=== PATIENT | female | born 1965 | race African-American/Black ===

== ENCOUNTER 2020-05-13 15:29 | Inpatient (IN) | payer OTHER ==
--- NOTE | 2020-05-13 15:41 | PDOC ---
Rapid Medical Evaluation Time Seen by Provider: 05/13/20 15:32 Medical Evaluation: 05/13/20 15:36 I performed a brief in-person evaluation of this patient. Pt is a 54 y/o female with a wound to the her R medial ankle that she noticed several months. She was seen in wound care in [place]. She has been here since labor day visiting family and noticed the pain has gotten much worse and much more drainage. Pt has h/o HTN, asthma. No DM, no smoker. Was placed on doxycycline last week and just finished the course. Pertinent physical exam findings: Medial ankle wound with drainage. No significant odor. Significant tenderness to touch. I have ordered the following: saline lock, labs, ankle xray Patient to proceed to ED for further evaluation. Discharge Disposition - Diagnosis Wound of right ankle - Referrals - Patient Instructions - Post Discharge Activity
[2020-05-13] MEDS ORDERED: CLINDAMYCIN 600MG PREMIX IVPB 600 MG/50 ML BAG IVPB ONE ×2 (16:36→17:25)
--- NOTE | 2020-05-13 17:04 | PDOC ---
History of Present Illness - General Chief Complaint: Wound Stated Complaint: WOUND Time Seen by Provider: 05/13/20 15:32 History Source: Patient Exam Limitations: No Limitations - History of Present Illness Initial Comments: 05/13/20 16:59 54-year-old female presents to ED with complaints of nonhealing wound to her right inner ankle for the past few months patient states lives in [place] has been in wound care since December and was placed on doxycycline which she completed on the fourth of this month but continues with collagenase and topical ointments with dressing changes with no improvement. Patient denies fever but states increased pain and swelling to area. Patient denies history of diabetes or immunosuppression Is this a multiple visit Asthma Patient?: No Timing/Duration: getting worse Severity: moderate Associated Symptoms: reports: other Past History - Travel History Traveled outside of the country in the last 30 days: No Close contact w/someone who was outside of country & ill: No - Medical History Allergies/Adverse Reactions: Allergies Allergy/AdvReac Type Severity Reaction Status Date / Time No Known Allergies Allergy Verified 05/13/20 15:40 Home Medications: Ambulatory Orders Hydrochlorothiazide [Hctz -] 25 mg PO DAILY 05/13/20 Lisinopril [Zestril] 10 mg PO DAILY 05/13/20 Albuterol Sulfate Inhaler - [Ventolin HFA Inhaler -] 2 puff IH Q4H PRN 05/14/20 Amoxicillin/Potassium Clav [Augmentin 875-125 Tablet] 1 each PO BID #14 tablet 05/17/20 Ferrous Sulfate [Feosol] 325 mg PO BID #60 ud 05/17/20 Polyethylene Glycol 3350 [Miralax (For Daily Use) -] 17 gm PO DAILY PRN #1 bottle 05/17/20 COPD: No HTN: Yes Other medical history: ARTHRITIS - Reproductive History Is Patient Now?: No - Psycho-Social/Smoking History Patient Lives Alone: No Smoking History: Never smoked Review of Systems - Review of Systems Able to Perform ROS?: Yes Constitutional: No: Symptoms Reported HEENTM: No: Symptoms Reported Respiratory: No: Symptoms reported Cardiac (ROS): No: Symptoms Reported ABD/GI: No: Symptoms Reported : No: Symptoms Reported Musculoskeletal: No: Joint Swelling Integumentary: Yes: Other (wound) Neurological: No: Symptoms reported Endocrine: No: Symptoms Reported *Physical Exam - Vital Signs Last Vital Signs Temp Pulse Resp BP Pulse Ox 109 H 18 138/75 100 05/13/20 15:35 05/13/20 15:35 05/13/20 15:35 05/13/20 15:35 - Physical Exam General Appearance: Yes: Nourished, Appropriately Dressed. No: Apparent Distress HEENT: negative: Pale Conjunctivae Neck: positive: Supple Respiratory/Chest: positive: Lungs Clear, Normal Breath Sounds. negative: Resp iratory Distress, Accessory Muscle Use Cardiovascular: positive: Regular Rate. negative: Murmur Gastrointestinal/Abdominal: positive: Soft. negative: Tenderness Extremity: positive: Normal Inspection Integumentary: positive: Other (Noted 3 cm open wound to the medial aspect of right malleolus with boggy whitish center.Surrounding skin erythematous with 4+ nonpitting edema extending to the foot) Neurologic: positive: Motor Strength 5/5 (Ambulatory) ED Treatment Course - LABORATORY CBC & Chemistry Diagram: 05/17/20 07:30 05/17/20 07:30 - RADIOLOGY Radiology Studies Ordered: Category Date Time Status DUPLEX VASCUL US-1 LEG [US] Stat Ultrasound 05/13/20 16:35 Ordered Medical Decision Making - Medical Decision Making 05/13/20 17:06 Chief complaint: Nonhealing worsening open wound to the right medial aspect of ankle. Patient completed doxycycline on the fourth was in wound care up into the third while in [place] Exam: Open 3 cm wound to lower aspect of right lower extremity surrounding skin erythematous and edematous concerning for cellulitis versus DVT Plan: X-ray, labs, ultrasound, IV clindamycin ordered along with wound culture 05/13/20 17:52 No radiology no radiographic evidence of osteomyelitis Discharge - Discharge Information Problems reviewed: Yes Clinical Impression/Diagnosis: Cellulitis and abscess of leg Wound of right ankle Qualifiers: Encounter type: initial encounter Qualified Code(s): S91.001A - Unspecified open wound, right ankle, initial encounter Condition: Improved Disposition: HOME - Follow up/Referral - Patient Discharge Instructions - Post Discharge Activity
[2020-05-13 18:02] LABS: BASO % 0.2 % (0-2.0); EOS % 4.1 % (0-4.5); HEMATOCRIT 31.3 % (32.4-45.2); HEMOGLOBIN 9.8 GM/dL (10.7-15.3); LYMPH % 32.7 % (8-40); MCH 22.3 pg (25.7-33.7); MCHC 31.3 g/dl (32.0-36.0); MEAN CELL VOLUME 71.1 fl (80-96); MEAN PLT VOLUME 10.3 fl (7.5-11.1); MONO % 9.9 % (3.8-10.2); NEUT % 53.1 % (42.8-82.8); PLATELET COUNT 162 K/MM3 (134-434); RBC 4.39 M/mm3 (3.60-5.2); RDW 19.2 % (11.6-15.6); WHITE BLOOD COUNT 6.3 K/mm3 (4.0-10.0)
[2020-05-13 18:13] LABS: INR 1.09 (0.83-1.09); PROTHROMBIN TIME (PATIENT) 12.9 SEC (9.7-13.0)
[2020-05-13 18:16] LABS: ACTIVATED PTT 32.9 SECONDS (25.2-36.5)
[2020-05-13 18:31] LABS: ALBUMIN 2.9 g/dl (3.4-5.0); BILIRUBIN,TOTAL 0.3 mg/dL (0.2-1); BLOOD UREA NITROGEN 12.7 mg/dL (7-18); CREATININE 0.5 mg/dL (0.55-1.3); POTASSIUM 4.1 mmol/L (3.5-5.1); TOT PROT 6.5 g/dl (6.4-8.2)
--- NOTE | 2020-05-13 19:59 | PDOC ---
*Physical Exam - Vital Signs Last Vital Signs Temp Pulse Resp BP Pulse Ox 109 H 18 138/75 100 05/13/20 15:35 05/13/20 15:35 05/13/20 15:35 05/13/20 15:35 - Physical Exam General Appearance: Yes: Appropriately Dressed Integumentary: positive: Other (right leg wound with right leg swelling. ) ED Treatment Course - LABORATORY CBC & Chemistry Diagram: 05/13/20 17:37 05/13/20 17:37 - ADDITIONAL ORDERS Additional order review: Laboratory Results 05/13/20 05/13/20 17:37 17:37 PT with INR 12.90 INR 1.09 PTT (Actin FS) 32.9 Sodium 139 Potassium 4.1 Chloride 105 Carbon Dioxide 27 Anion Gap 6 L BUN 12.7 Creatinine 0.5 L Est GFR (CKD-EPI)AfAm 128.97 Est GFR (CKD-EPI)NonAf 111.28 Random Glucose 87 Calcium 9.0 Total Bilirubin 0.3 AST 25 ALT 18 Alkaline Phosphatase 81 Total Protein 6.5 Albumin 2.9 L 05/13/20 17:37 RBC 4.39 MCV 71.1 L MCHC 31.3 L RDW 19.2 H MPV 10.3 Neutrophils % 53.1 Lymphocytes % 32.7 Monocytes % 9.9 Eosinophils % 4.1 Basophils % 0.2 - Medications Given in the ED: ED Medications Discontinued Medications Generic Name Dose Route Start Last Admin Trade Name Freq PRN Reason Stop Dose Admin Clindamycin Phosphate 600 mg in 50 mls @ 100 mls/hr 05/13/20 16:36 05/13/20 17:53 Cleocin 600 Mg Premix Ivpb - IVPB 05/13/20 17:05 100 mls/hr ONCE ONE Administration Medical Decision Making - Medical Decision Making 05/13/20 20:32 Patient signed out to IM resident . patient for admission under Dr. patricia. will admit for further management of care. Discharge - Discharge Information Problems reviewed: Yes Clinical Impression/Diagnosis: Cellulitis and abscess of leg Wound of right ankle Qualifiers: Encounter type: initial encounter Qualified Code(s): S91.001A - Unspecified open wound, right ankle, initial encounter - Admission Yes - Follow up/Referral Referrals: ON STAFF,NOT [Primary Care Provider] - - Patient Discharge Instructions - Post Discharge Activity
[2020-05-13] MEDS ORDERED: ACETAMINOPHEN 1000 MG/100 ML VIAL (NON FORMULARY) IVPB ONE (20:33)
--- NOTE | 2020-05-13 20:33 | PN ---
Teaching Attending Note Name of Resident: Prasanna Borjas ATTENDING PHYSICIAN STATEMENT I saw and evaluated the patient. I reviewed the resident's note and discussed the case with the resident. I agree with the resident's findings and plan as documented. SUBJECTIVE: Patient is a 54 year old woman with a PMH of Arthritis, Asthma, and HT N who presents with a wound to the her right medial ankle that she noticed several months ago. She was seen in Wound care in [place]. She has been here since Labor day visiting family and noticed the pain has gotten much worse and much more drainage. Was placed on doxycycline last week and just finished the course. Patient denies chest pain, shortness of breath, abdominal pain, headache, palpitations, dizziness, fever, chills, nausea, vomiting, diarrhea, constipation, dysuria, frequency, urgency, melena, hematochezia or hematuria. LMP was last week and her periods last 3 days. Denies alcohol, tobacco or illicit drug use. No sick contacts or recent travels. Family history of DM in mother. OBJECTIVE: Alert Vital Signs Period Temp Pulse Resp BP Sys/Galindo Pulse Ox Last 24 Hr 109 18 138/75 100 HEENT: No Jaundice, eye redness or discharge, PERRLA, EOMI. Normocephalic, atraumatic. External ears are normal and hearing is grossly intact. No nasal discharge. Neck: Supple, nontender. No palpable adenopathy or thyromegaly. No JVD Chest: Good effort. Clear to auscultation and percussion. Heart: Regular. No S3, rub or murmur Abdomen: Not distended, soft, nontender and no HSM. No rebound or guarding. Normal bowel sounds. Ext: Peripheral pulses intact. Leg edema. Medial right ankle ulcer, about 2 inches in diameter - stage 3, covered with necrotic tissue; clear drainage and surrounding tenderness. Skin: Warm and dry. No petechiae, rash or ecchymosis. Neuro: Alert. Oriented x3. CN 2-12 grossly intact. Sensation grossly intact in all four extremities and DTR are symmetric. Psych: Appropriate mood and affect. Good insight. Home Medications Medication Instructions Recorded Hydrochlorothiazide [Hctz -] 25 mg PO DAILY 05/13/20 Lisinopril [Zestril] 10 mg PO DAILY 05/13/20 Abnormal Lab Results 05/13/20 05/13/20 17:37 17:37 Hgb 9.8 L Hct 31.3 L MCV 71.1 L MCH 22.3 L MCHC 31.3 L RDW 19.2 H Anion Gap 6 L Creatinine 0.5 L Albumin 2.9 L Current Medications Generic Name Dose Route Start Last Admin Trade Name Freq PRN Reason Stop Dose Admin Enoxaparin Sodium 40 mg 05/14/20 10:00 Lovenox - SQ DAILY [facility] Clindamycin Phosphate 600 mg in 50 mls @ 100 mls/hr 05/14/20 02:00 Cleocin 600 Mg Premix Ivpb - IVPB Q8H-IV [facility] Protocol Vancomycin HCl 1,000 mg 05/14/20 10:00 Vancomycin (Pre-Docked) IVPB BID [facility] Protocol Vancomycin HCl 1,000 mg 05/13/20 23:45 Vancomycin (Pre-Docked) IVPB 05/14/20 11:46 Q12H [facility] Protocol ASSESSMENT AND PLAN: 1. Right ankle infected ulcer and cellulitis - No obvious risk factor for leg ulcer - besides obesity and possibly peripheral vascular disease/venous stasis. Right ankle xray does not show any fracture or gas collection, but shows soft tissue swelling. No DVT noted on vascular study of right leg. Wound culture sent and patient will get IV Vancomycin. Will get ECHO, HbA1c, and consult Podiatry/ID and Surgery for debridement. EKG shows sinus tachycardia at 105/minute, LAE and QTc [address]-T wave changes. Viral testing for COVID-19 ordered and patient placed on airborne, droplet and contact isolation. Will continue comprehensive care for all of patients comorbid conditions. 2. Hypoalbuminemia - Possibly due to combined effects of malnutrition and inflammation associated with comorbid conditions. Will ensure adequate dietary protein intake and also consult newsroom intern. Urinalysis pending. 3. Low MCV Anemia Cause unclear - possibly has ?delayed menopause. Will do basic anemia work up including serial stool guaiacs, reticulocyte count and iron studies. Consult [employer] TECHNICIAN and GI. 4. Obesity Counseled on the risks associated with obesity. Will provide patient all the necessary assistance, counseling and positive reinforcement to facilitate weight loss. Consult newsroom intern. 5. Hypertension Will restart suitable outpatient antihypertensive drugs when clinically appropriate. Subsequently, will revise regimen to ensure [id number] excellent BP control. Patient counseled on the injurious effects of uncontrolled hypertension. Nonpharmacologic measures to control hypertension like weight loss, salt restriction and exercise stressed. Importance of adherence to treatment regimen and attainment of normotension emphasized. 6. DVT prophylaxis - Lovenox 40 mg SQ q 24 hours. 7. Advance directives - Full code
--- OUTSIDE RECORDS SUMMARY | 2020-05-13 20:39 | XMS ---
:1965 Author Organization [facility] Support Name Relationship Address Phone UE Unavailable Unavailable Unavailable JERO ASCENCIO DAUGHTER [address] [place] [id number] Re-disclosure Warning The records that you are about to access may contain information from federally- assisted alcohol or drug abuse programs. If such information is present, then the following federally mandated warning applies: This information has been disclosed to you from records protected by federal confidentiality rules (42 CFR part 2). The federal rules prohibit you from making any further disclosure of this information unless further disclosure is expressly permitted by the written consent of the person to whom it pertains or as otherwise permitted by 42 CFR part 2. A general authorization for the release of medical or other information is NOT sufficient for this purpose. The Federal rules restrict any use of the information to criminally investigate or prosecute any alcohol or drug abuse patient.The records that you are about to access may contain highly sensitive health information, the redisclosure of which is protected by Article 27-F of the [facility] Public Health law. If you continue you may haveaccess to information: Regarding HIV / AIDS; Provided by facilities licensed or operated by the [facility] Office of Mental Health; or Provided by the [facility] Office for People With Developmental Disabilities. If such information is present, then the following [facility] mandated warning applies: This information has been disclosed to you from confidential records which are protected by state law. State law prohibits you from making any further disclosure of this information without the specific written consent of the person to whom it pertains, or as otherwise permitted by law. Any unauthorized further disclosure in violation of state law may result in a fine or custodial sentence or both. A general authorization for the release of medical or other information is NOT sufficient authorization for further disclosure. Insurance Providers Payer name Policy type Policy ID Covered Covered republican's Policy P tasia / Coverage republican ID relationship to [employer] ormation type [place] MEDICAID [id number] SP [id number] OTHER
[2020-05-13] MEDS ORDERED: ACETAMINOPHEN INJECTION 100 ML IVPB ONE (21:30)
[2020-05-13] MEDS ORDERED: ACETAMINOPHEN 500 MG TABLET (FP) PO ONE (21:33)
[2020-05-13] MEDS ORDERED: ACETAMINOPHEN 500 MG TABLET (FP) ONE (21:33)
[2020-05-14] MEDS ORDERED: VANCOMYCIN 1 GRAM (PRE-DOCKED) 1,000 MG/250 ML BAG IVPB ONE (00:51)
--- NOTE | 2020-05-14 01:08 | HP ---
CHIEF COMPLAINT: Ulcer and Cellulitis PCP: In [place] HISTORY OF PRESENT ILLNESS: 54 year old female patient with past medical history that includes HTN, Asthma, Arthritis, Left Ankle Ulcer, and Anemia, who presented to the emergency room with worsening pain and fluid drainage from her ulcer above her right medial malleolus. The patient denies any precipitating event that caused her ulcer. She states that the area started to become red, after which it started to ulcerate. She has had a previous ulcer around 2016 on the front of her left ankle, which has since fully healed. She states that the previous ulcer healed after she went to the wound care clinic in [place]. She has also been goi ng to the wound care clinic for her current ulcer since December 2019, and has recently completed a course of Doxycycline on Wednesday05/01/2020 about 2 weeks ago. She has been visiting family here since , and her wound has been progressively getting worse, so she decided to come to the emergency room. The patient states that she has been having anemia since she first gave to her children. She takes a multivitamin with iron every day. She reports being worked up for her anemia as an outpatient, with the anemia reportedly resolving with her iron supplements. She still has menstrual periods, where she bleeds for 3 days non-heavy bleeding. She denies ever having a colonoscopy. 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 LMP: Still having menstrual periods. Last period was last week. Bleeds for 3 days. Colonoscopy: Denies having a colonoscopy yet. Allergies No Known Allergies Allergy (Verified 05/13/20 15:40) HOME MEDICATIONS: Home Medications Medication Instructions Recorded Hydrochlorothiazide [Hctz -] 25 mg PO DAILY 05/13/20 Lisinopril [Zestril] 10 mg PO DAILY 05/13/20 REVIEW OF SYSTEMS CONSTITUTIONAL: Absent: denies body aches, denies fever, denies chills CARDIOVASCULAR: Absent: denies chest pain, denies palpitations RESPIRATORY: Absent: denies cough, denies shortness of breath GASTROINTESTINAL: Absent: denies diarrhea, denies constipation, denies nausea, denies vomiting, denies black stool, denies blood in her stool, denies blood in her urine NEUROLOGIC: Absent: denies numbness, denies weakness PHYSICAL EXAMINATION Vital Signs - 24 hr 05/13/20 05/13/20 15:35 20:58 Temperature 98.9 F Pulse Rate 109 H Pulse Rate [ 93 H Apical] Respiratory 18 18 Rate Blood Pressure 138/75 Blood Pressure 134/65 [Right Arm] O2 Sat by Pulse 100 100 Oximetry (%) GENERAL: Awake, alert, and fully oriented, in no acute distress. HEAD: Normal with no signs of trauma. EYES: Pupils equal, round and reactive to light, extraocular movements intact. No lid lag. EARS, NOSE, THROAT: Ears normal, nares patent, oropharynx clear without exudates. Moist mucous membranes. NECK: Normal range of motion, supple without lymphadenopathy, JVD, or masses. LUNGS: Breath sounds equal, clear to auscultation bilaterally. No wheezes, and no crackles. No accessory muscle use. HEART: Tachycardic. Regular rhythm, normal S1 and S2. Soft systolic murmur. ABDOMEN: Soft, nontender, not distended, normoactive bowel sounds, no guarding, no rebound, no masses. MUSCULOSKELETAL: Normal range of motion at all joints. No bony deformities or tenderness. UPPER EXTREMITIES: 2+ pulses, warm, well-perfused. No cyanosis. No clubbing. No peripheral edema. LOWER EXTREMITIES: 2+ pulses, warm, well-perfused. No calf tenderness. Non- pitting peripheral edema. Large ulcer above right medial malleolus with subcutaneous tissue showing and clear fluid draining. Significant painful redness and swelling surrounding the ulcer. Fully healed wound on front of left ankle. NEUROLOGICAL: Normal speech. Antalgic gait. Able to ambulate. Muscle strength +5/5 in upper and lower extremities bilaterally. PSYCHIATRIC: Cooperative. Good eye contact. Appropriate mood and affect. SKIN: Warm, dry, normal turgor, normal capillary refill. Laboratory Results - last 24 hr 05/13/20 05/13/20 05/13/20 17:37 17:37 17:37 WBC 6.3 RBC 4.39 Hgb 9.8 L Hct 31.3 L MCV 71.1 L MCH 22.3 L MCHC 31.3 L RDW 19.2 H Plt Count 162 MPV 10.3 Absolute Neuts (auto) 3.4 Neutrophils % 53.1 Lymphocytes % 32.7 Monocytes % 9.9 Eosinophils % 4.1 Basophils % 0.2 Nucleated RBC % 0 PT with INR 12.90 INR 1.09 PTT (Actin FS) 32.9 Sodium 139 Potassium 4.1 Chloride 105 Carbon Dioxide 27 Anion Gap 6 L BUN 12.7 Creatinine 0.5 L Est GFR (CKD-EPI)AfAm 128.97 Est GFR (CKD-EPI)NonAf 111.28 Random Glucose 87 Calcium 9.0 Total Bilirubin 0.3 AST 25 ALT 18 Alkaline Phosphatase 81 Total Protein 6.5 Albumin 2.9 L ASSESSMENT/PLAN: 54 year old female patient with past medical history that includes HTN, Asthma, Arthritis, Left Ankle Ulcer, and Anemia, who presented to the emergency room with worsening pain and fluid drainage from her ulcer above her right medial malleolus. 1. Ulcer with cellulitis - Vancomycin 1 gm BID - ID consulted - Will likely need a debridement of her wound - Oxycodone 5mg Q6 PRN for pain 2. Microcytic Anemia - Iron studies - FOBT 3. HTN - Can resume the home HTN medications when clinically appropriate 4. Obesity - Baller Tender consulted #FEN - Normal Saline maintenance fluids at 83 ml/hr to avoid dehydration. Monitoring Electrolytes. NPO in case of debridement surgery tomorrow DVT PPx - Lovenox SQ Family Medical History Family History: As Documented Family Hx Diabetes: Mother Visit type - Emergency Visit Emergency Visit: Yes ED Registration Date: 05/13/20 Care time: The patient presented to the Emergency Department on the above date and was hospitalized for further evaluation of their emergent condition. - New Patient This patient is new to me today: Yes Date on this admission: 05/14/20 - Critical Care Critical Care patient: No ATTENDING PHYSICIAN STATEMENT I saw and evaluated the patient. I reviewed the resident's note and discussed the case with the resident. I agree with the resident's findings and plan as documented. SUBJECTIVE: OBJECTIVE: ASSESSMENT AND PLAN:
[2020-05-14] MEDS ORDERED: CLINDAMYCIN 600MG PREMIX IVPB 600 MG/50 ML BAG IVPB SCH (02:00)
[2020-05-14] MEDS: VANCOMYCIN 1 GM in D5W (PRE-DOCKED) 1,000 MG/250 ML IVPB SCH ×2 (02:07→14:18)
[2020-05-14] MEDS: SODIUM CHLORIDE 1,000 ML IV SCH ×2 (02:07→14:18)
[2020-05-14 07:35] LABS: BASO % 0.1 % (0-2.0); EOS % 4.8 % (0-4.5); HEMATOCRIT 30.4 % (32.4-45.2); HEMOGLOBIN 9.4 GM/dL (10.7-15.3); MCH 22.1 pg (25.7-33.7); MCHC 30.8 g/dl (32.0-36.0); MEAN CELL VOLUME 71.7 fl (80-96); MEAN PLT VOLUME 9.7 fl (7.5-11.1); MONO % 11.4 % (3.8-10.2); NEUT % 40.7 % (42.8-82.8); PLATELET COUNT 130 K/MM3 (134-434); RBC 4.24 M/mm3 (3.60-5.2); WHITE BLOOD COUNT 5.3 K/mm3 (4.0-10.0)
[2020-05-14 08:23] LABS: BLOOD UREA NITROGEN 11.1 mg/dL (7-18); CALCIUM 8.3 mg/dL (8.5-10.1); CREATININE 0.4 mg/dL (0.55-1.3); MAGNESIUM 1.4 mg/dL (1.8-2.4); POTASSIUM 3.8 mmol/L (3.5-5.1)
[2020-05-14] MEDS ORDERED: MAGNESIUM SULF 50% (8.12 MEQ/2 ML-1 GM VIAL) IVPB ONE (08:47)
--- NOTE | 2020-05-14 09:27 | EKG ---
Test Reason : Blood Pressure : / mmHG Vent. Rate : 105 BPM Atrial Rate : 105 BPM P-R Int : 174 ms QRS Dur : 088 ms QT Int : 352 ms P-R-T Axes : 072 062 059 degrees QTc Int : 465 ms POOR DATA QUALITY, INTERPRETATION MAY BE ADVERSELY AFFECTED SINUS TACHYCARDIA POSSIBLE LEFT ATRIAL ENLARGEMENT BORDERLINE ECG WHEN COMPARED WITH ECG OF 27-JAN-2007 07:56, NO SIGNIFICANT CHANGE WAS FOUND Confirmed by MD WAI, BAILEY ([id number]) on 05/14/2020 9:26:52 AM Referred By: Confirmed By:BAILEY CARRENO MD
[2020-05-14] MEDS ORDERED: MAGNESIUM SULFATE IN WATER 2 GM/50 ML IVPB IVPB ONE (09:45)
[2020-05-14] MEDS ORDERED: VANCOMYCIN 1 GM in D5W (PRE-DOCKED) 1,000 MG/250 ML IVPB SCH (10:00)
[2020-05-14] MEDS ORDERED: MAGNESIUM 1GM/D5W - 1 GM/100 ML IVPB IVPB ONE (10:27)
[2020-05-14] MEDS ORDERED: ENOXAPARIN NA (PORCINE) 40 MG/0.4 ML DISP.SYRIN SQ ONE (12:04)
[2020-05-14] MEDS: ENOXAPARIN NA (PORCINE) 40 MG/0.4 ML DISP.SYRIN SQ SCH (12:13)
[2020-05-14] MEDS ORDERED: ACETAMINOPHEN 325 MG TABLET (FP) PO PRN (13:45)
--- NOTE | 2020-05-14 13:51 | ECHO ---
Name: FANY OG Exam:Adult Echocardiogram Study Date: 05/14/2020 10:59 AM Age: 54 yrs Reason For Study: NON PITTING LEG EDEMA Height: 65 in Weight: 215 lb BSA: 2.0 m2 MMode/2D Measurements & Calculations RVDd: 3.2 cm Ao root diam: 2.7 cm IVSd: 1.0 cm LA dimension: 3.5 cm LVIDd: 4.4 cm ACS: 2.1 cm LVIDs: 2.8 cm LVPWd: 1.0 cm EDV(Teich): 89.0 ml LVOT diam: 2.0 cm ESV(Teich): 28.9 ml LAV (MOD-bp): 69.0 ml TAPSE: 2.7 cm RV S Christiano: 23.0 cm/sec Doppler Measurements & Calculations MV E max christiano: 95.1 cm/sec Ao V2 max: 178.8 cm/sec MV A max christiano: 97.6 cm/sec Ao max P.8 mmHg MV E/A: 0.97 Ao V2 mean: 121.9 cm/sec MV dec time: 0.19 sec Ao mean P.9 mmHg Ao V2 VTI: 29.9 cm DEBORA(I,D): 2.6 cm2 DEBORA(V,D): 2.6 cm2 LV V1 max P.3 mmHg MR max christiano: 498.4 cm/sec LV V1 mean P.7 mmHg MR max P.4 mmHg LV V1 max: 152.9 cm/sec LV V1 mean: 101.2 cm/sec LV V1 VTI: 26.2 cm SV(LVOT): 79.2 ml TR max christiano: 269.6 cm/sec TR max P.5 mmHg PA V2 max: 88.2 cm/sec Med Peak E' Christiano: 8.9 cm/sec PA max P.1 mmHg Med E/e': 10.7 PA acc slope: 859.1 cm/sec2 Lat Peak E' Christiano: 13.9 cm/sec PA acc time: 0.11 sec Lat E/e': 6.8 PA pr(Accel): 29.9 mmHg Left Ventricle The left ventricular size, thickness and function are normal. Ejection Fraction = 65%. The transmitra l spectral Doppler flow pattern is suggestive of impaired LV relaxation. Right Ventricle The right ventricle is normal in size and function. Atria The left atrium is mildly dilated. Right atrial size is normal. Mitral Valve The mitral valve is normal in structure and function. There is trace to mild mitral regurgitation. Tricuspid Valve The tricuspid valve is not well visualized, but is grossly normal. There is trace tricuspid regurgita tion. Right ventricular systolic pressure is 34 mmhg. Aortic Valve There is mild aortic valve thickening. No hemodynamically significant valvular aortic stenosis. Pulmonic Valve The pulmonic valve is not well seen, but is grossly normal. Great Vessels The aortic root is normal size. Pericardium/Pleura There is no pericardial effusion. Interpretation Summary The left ventricular size, thickness and function are normal. Ejection Fraction = 65%. The right ventricle is normal in size and function. The left atrium is mildly dilated. Right atrial size is normal. There is mild aortic valve thickening. No hemodynamically significant valvular aortic stenosis. The mitral valve is normal in structure and function. There is trace to mild mitral regurgitation. MD Bernie Vega 05/14/2020 01:50 PM
[2020-05-14] MEDS ORDERED: ALBUTEROL SO4 HFA INHALER IH PRN (14:44)
[2020-05-14] MEDS: oxyCODONE HCL 5 MG TABLET PO PRN ×2 (14:56→21:26)
--- NOTE | 2020-05-14 15:17 | PN ---
Physical Exam: SUBJECTIVE: Patient seen and examined. Complaining of pain over ulcer site. Denies fever, chills, n/v, diarrhea/constipation, CP, SOB. OBJECTIVE: Vital Signs Period Temp Pulse Resp BP Sys/Galindo Pulse Ox Last 24 Hr 97.5 F-98.9 F 76-109 16-19 111-141/55-91 100-100 GENERAL: Awake, alert, and fully oriented, in no acute distress. HEAD: Normal with no signs of trauma. EYES: Pupils equal, round and reactive to light, extraocular movements intact. No lid lag. EARS, NOSE, THROAT: Ears normal, nares patent, oropharynx clear without exudates. Moist mucous membranes. NECK: Normal range of motion, supple without lymphadenopathy, JVD, or masses. LUNGS: Breath sounds equal, clear to auscultation bilaterally. No wheezes, and no crackles. No accessory muscle use. HEART: Tachycardic. Regular rhythm, normal S1 and S2. Soft systolic murmur. ABDOMEN: Soft, nontender, not distended, normoactive bowel sounds, no guarding, no rebound, no masses. MUSCULOSKELETAL: Normal range of motion at all joints. No bony deformities or tenderness. UPPER EXTREMITIES: 2+ pulses, warm, well-perfused. No cyanosis. No clubbing. No peripheral edema. LOWER EXTREMITIES: 2+ pulses, warm, well-perfused. No calf tenderness. Non- pitting peripheral edema. Healed wound on top of foot, anterior ankle. Large ulcer above right medial malleolus with subcutaneous tissue showing and clear/brown fluid draining. Significant painful redness and swelling surrounding the ulcer. NEUROLOGICAL: Normal speech. Antalgic gait. Able to ambulate. Muscle strength +5/5 in upper and lower extremities bilaterally. PSYCHIATRIC: Cooperative. Good eye contact. Appropriate mood and affect. SKIN: Warm, dry, normal turgor, normal capillary refill. Laboratory Results - last 24 hr 05/13/20 05/13/20 05/13/20 17:37 17:37 17:37 WBC 6.3 RBC 4.39 Hgb 9.8 L Hct 31.3 L MCV 71.1 L MCH 22.3 L MCHC 31.3 L RDW 19.2 H Plt Count 162 MPV 10.3 Absolute Neuts (auto) 3.4 Neutrophils % 53.1 Lymphocytes % 32.7 Monocytes % 9.9 Eosinophils % 4.1 Basophils % 0.2 Nucleated RBC % 0 Retic Count PT with INR 12.90 INR 1.09 PTT (Actin FS) 32.9 Sodium 139 Potassium 4.1 Chloride 105 Carbon Dioxide 27 Anion Gap 6 L BUN 12.7 Creatinine 0.5 L Est GFR (CKD-EPI)AfAm 128.97 Est GFR (CKD-EPI)NonAf 111.28 Random Glucose 87 Hemoglobin A1c % Calcium 9.0 Magnesium Iron TIBC Iron Saturation Unsaturated IBC Total Bilirubin 0.3 AST 25 ALT 18 Alkaline Phosphatase 81 Total Protein 6.5 Albumin 2.9 L Vitamin B12 Serum Folate 05/14/20 05/14/20 05/14/20 05:28 05:28 05:28 WBC 5.3 RBC 4.24 Hgb 9.4 L Hct 30.4 L MCV 71.7 L MCH 22.1 L MCHC 30.8 L RDW 19.0 H Plt Count 130 L MPV 9.7 Absolute Neuts (auto) 2.2 Neutrophils % 40.7 L D Lymphocytes % 43.0 H D Monocytes % 11.4 H Eosinophils % 4.8 H Basophils % 0.1 Nucleated RBC % 0 Retic Count PT with INR INR PTT (Actin FS) Sodium 140 Potassium 3.8 Chloride 106 Carbon Dioxide 27 Anion Gap 7 L BUN 11.1 Creatinine 0.4 L Est GFR (CKD-EPI)AfAm 138.79 Est GFR (CKD-EPI)NonAf 119.75 Random Glucose 88 Hemoglobin A1c % 5.5 Calcium 8.3 L Magnesium 1.4 L Iron 17 L TIBC 266 Iron Saturation 6 L Unsaturated IBC 249 Total Bilirubin AST ALT Alkaline Phosphatase Total Protein Albumin Vitamin B12 503 Serum Folate 13 05/14/20 05:28 WBC RBC Hgb Hct MCV MCH MCHC RDW Plt Count MPV Absolute Neuts (auto) Neutrophils % Lymphocytes % Monocytes % Eosinophils % Basophils % Nucleated RBC % Retic Count 0.84 PT with INR INR PTT (Actin FS) Sodium Potassium Chloride Carbon Dioxide Anion Gap BUN Creatinine Est GFR (CKD-EPI)AfAm Est GFR (CKD-EPI)NonAf Random Glucose Hemoglobin A1c % Calcium Magnesium Iron TIBC Iron Saturation Unsaturated IBC Total Bilirubin AST ALT Alkaline Phosphatase Total Protein Albumin Vitamin B12 Serum Folate Active Medications Generic Name Dose Route Start Last Admin Trade Name Freq PRN Reason Stop Dose Admin Acetaminophen 650 mg 05/14/20 13:45 Tylenol - PO Q6H PRN Fever Albuterol Sulfate 2 puff 05/14/20 14:44 Ventolin Hfa Inhaler - IH Q4H PRN SHORT OF BREATH/WHEEZING Enoxaparin Sodium 40 mg 05/14/20 10:00 05/14/20 12:13 Lovenox - SQ 40 mg DAILY [facility]ARK Administration Hydrochlorothiazide 25 mg 05/15/20 10:00 Hctz - PO DAILY CLARK Sodium Chloride 1,000 mls @ 83 mls/hr 05/14/20 01:30 05/14/20 14:18 Normal Saline - IV 83 mls/hr ASDIR CLARK Administration Lisinopril 10 mg 05/15/20 10:00 Prinivil PO DAILY CLARK Oxycodone HCl 5 mg 05/14/20 01:22 Roxicodone - PO Q6H PRN PAIN LEVEL 6-10 Vancomycin HCl 1,000 mg 05/14/20 10:00 Vancomycin (Pre-Docked) IVPB BID CLARK Protocol ASSESSMENT/PLAN: Pt is a 54 yo F with PMHx of HTN, asthma, arthritis, resolve L ankle ulcer, and anemia presenting to the ED with worsening pain and fluid drainage from ulcer above R medial malleolus, treated with doxycycline outpatient, admitted for cellulitis + ulcer. #R medial maleolus ulcer + cellulitis -Ceftriaxone and clindamycin per ID -consulted vascular and ID #Hx of microcytic anemia -continue ferrous sulfate -H/H 9.4/30.4; continue to trend -Iron studies: iron 17; retic count 0.84, B12 and folate WNL #Hx of HTN -Continue home Lisinopril and HCTZ FEN: Sodium controlled diet Monitor electrolytes NS @ 83cc/hr PPx: Lovenox SQ Dispo: Admit to med surg. On vanc. Visit type - Emergency Visit Emergency Visit: Yes ED Registration Date: 05/13/20 Care time: The patient presented to the Emergency Department on the above date and was hospitalized for further evaluation of their emergent condition. - New Patient This patient is new to me today: No - Critical Care Critical Care patient: No ATTENDING PHYSICIAN STATEMENT I saw and evaluated the patient. I reviewed the resident's note and discussed the case with the resident. I agree with the resident's findings and plan as documented. SUBJECTIVE: OBJECTIVE: ASSESSMENT AND PLAN:
--- NOTE | 2020-05-14 15:33 | CON.GI ---
Consult Consult Specialty:: GI Referred by:: Hospitalist Service Reason for Consultation:: Anemia - History of Present Illness Chief Complaint: Right foot wound History of Present Illness: 54F admitted for evaluation of a right foot wound. Asked to evaluate anemia. States that she has had anemia for multiple years and has been told that her iron was low in the past as well. She denies dysphagia, odynophagia, early satiety, rectal bleeding, change in bowel habits, diarrhea, unintentional weight loss, change in stool caliber, family history of celiac disease. She has never had an upper endoscopy or colonoscopy. There is no family history of colorectal cancer or other GI malignancy. She still has regular menstrual periods lasting 2-3 days. - History Source History Provided By: Patient, Medical Record Limitations to Obtaining History: No Limitations - Past Medical History Cardio/Vascular: Yes: HTN Pulmonary: Yes: Asthma ...LMP: 05/08/20 ...: No Heme/Onc: Yes: Anemia - Past Surgical History Past Surgical History: Yes: (x 4), Hernia Repair (RIH repair, imbilical hernia repair) - Smoking History Smoking history: Never smoked - Social History Usual Living Arrangement: Alone () ADL: Independent Occupation: Worked in [employer] Place of : [facility] History of Recent Travel: Yes (Lives in [place]) Home Medications - Allergies Allergies/Adverse Reactions: Allergies Allergy/AdvReac Type Severity Reaction Status Date / Time No Known Allergies Allergy Verified 05/13/20 15:40 - Home Medications Home Medications: Ambulatory Orders Hydrochlorothiazide [Hctz -] 25 mg PO DAILY 05/13/20 Lisinopril [Zestril] 10 mg PO DAILY 05/13/20 Albuterol Sulfate Inhaler - [Ventolin HFA Inhaler -] 2 puff IH Q4H PRN 05/14/20 Naproxen 500 mg PO BID 05/14/20 Family Medical History Family Hx Diabetes: Mother Other Family History: Mother : 80's: h/o DM II. Father: : 56: Lung complications / asthma. 1 sister, 1 brother: healthy. 2 daughters, 1 with DM I, 1 healthy, 1 son, healthy. No family history of colorectal cancer or other GI malignancy Review of Systems - Review of Systems Constitutional: denies: Chills Cardiovascular: denies: Chest Pain Respiratory: denies: Cough Gastrointestinal: denies: Abdominal Pain, Diarrhea, Melena, Nausea, Rectal Bleeding, Vomiting, Vomiting Blood, Other Physical Exam-GI Vital Signs: Vital Signs Temperature 97.7 F 05/14/20 12:36 Pulse Rate 76 05/14/20 12:36 Respiratory Rate 16 05/14/20 12:36 Blood Pressure 134/91 05/14/20 12:36 O2 Sat by Pulse Oximetry (%) 100 05/14/20 12:36 Constitutional: Yes: Calm Eyes: No: Sclera Icterus Cardiovascular: Yes: Regular Rate and Rhythm Respiratory: Yes: CTA Bilaterally Gastrointestinal Inspection: Yes: Scars (+ Vertical and horizontal pelvic surgical scars). No: Distention ...Auscultate: Yes: Normoactive Bowel Sounds ...Palpate: No: Soft ...Percussion: No: Tympanitic ...Rectal Exam: Yes: Deferred (Refused by patient) Extremities: Yes: Other (RLE edema and dressing on right foot) Neurological: Yes: Alert Labs: CBC, BMP 05/14/20 05:28 05/14/20 05:28 INR, PTT INR 1.09 (0.83-1.09) 05/13/20 17:37 Problem List - Problems (1) Anemia Assessment/Plan: No overt bleeding history, no bowel habit complaints. Known chronic anemia and apparently known iron deficiency at some point. No indication for urgent endoscopic evaluation at this time Advise: Iron studies. Iron supplementation if she is iron deficient. has history of constipation while on iron in the past. Should be on MiraLAX 17g pnce to twice daily while on iron supplementation. Evaluation of concomitant thrombocytopenia per primary team Treat the primary reason for her admission: right foot wound Advised that when acute issues are resolved, she should undergo colonoscopy +/- endoscopy to exclude GI etiology of iron deficiency such as bleeding blood vessels, polyps or cancers such as colon cancer. She stated that she would discuss this with her PMD in [place] to arrange follow-up when she returns there in the next week. Would confirm if patient is taking regular naproxen and discontinue this Recall GI as needed. Will sign off now Code(s): D64.9 - ANEMIA, UNSPECIFIED
--- NOTE | 2020-05-14 15:41 | PN ---
Progress Note (short form) - Note Progress Note: ID consult dictated imp/reccd infected venous stasis ulcer with cellulitis and drainage clindamycin/ceftriaxone f/u cultures local care per surgery anemia Problem List - Problems (1) Cellulitis Code(s): L03.90 - CELLULITIS, UNSPECIFIED (2) Infected ulcer of skin Code(s): L98.499 - NON-PRESSURE CHRONIC ULCER OF SKIN OF SITES W UNSP SEVERITY; L08.9 - LOCAL INFECTION OF THE SKIN AND SUBCUTANEOUS TISSUE, UNSP (3) Venous stasis ulcer Code(s): I83.009 - VARICOSE VEINS OF UNSP LOWER EXTREMITY W ULCER OF UNSP SITE; L97.909 - NON-PRS CHRONIC ULC UNSP PRT OF UNSP LOW LEG W UNSP SEVERITY (4) Anemia Code(s): D64.9 - ANEMIA, UNSPECIFIED
--- NOTE | 2020-05-14 15:53 | CONSULT ---
- Consultation REQUESTING PROVIDER: CONSULT REQUEST: We have been asked to surgically evaluate this patient for (specify). Hospitalist:Kwadwo Baldwin MD HISTORY OF PRESENT ILLNESS: The patient is a 54 yo female who resides in [place] but is visiting family here since early April. The patient has a a chronic RLE wound for several months and was being treated in a wound clinic in [place]. She gets the wound wet every other day and does local wound ca re herself. She denies any h/o smoking, diabetes and the left ankle wound did heal with local wound care treatment. She is unclear why the ulcer developed on her let ankle. The patient does have swelling in her legs, take a water pill daily and wears compression stockings. PMHx: HTN, anemia, left ankle ulcer , asthma PSHx: c section x4, hernia surgery, tubal ligation Home Medications Medication Instructions Recorded Hydrochlorothiazide [Hctz -] 25 mg PO DAILY 05/13/20 Lisinopril [Zestril] 10 mg PO DAILY 05/13/20 Albuterol Sulfate Inhaler - 2 puff IH Q4H PRN 05/14/20 [Ventolin HFA Inhaler -] Naproxen 500 mg PO BID 05/14/20 Allergies Allergy/AdvReac Type Severity Reaction Status Date / Time No Known Allergies Allergy Verified 05/13/20 15:40 REVIEW OF SYSTEMS: CONSTITUTIONAL: Absent: fever, chills CARDIOVASCULAR: Present: peripheral edema to right leg PHYSICAL EXAM: GENERAL: Awake, alert, and fully oriented, in no acute distress. LOWER EXTREMITIES: 2+DP pulses b/l, warm, well-perfused. LLE with palpable PT and scar over anterior ankle. RLE with swelling of foot and ankle with 4 x 3cm superficial ulcer with pink and necrotic tissue base. Surrounding erythema/circumfrential from ankle to mid calf. evidence of b/l chronic venous stasis. Vital Signs Temperature 97.7 F 05/14/20 12:36 Pulse Rate 76 05/14/20 12:36 Respiratory Rate 16 05/14/20 12:36 Blood Pressure 134/91 05/14/20 12:36 O2 Sat by Pulse Oximetry (%) 100 05/14/20 12:36 Lab Results WBC 5.3 K/mm3 (4.0-10.0) 05/14/20 05:28 RBC 4.24 M/mm3 (3.60-5.2) 05/14/20 05:28 Hgb 9.4 GM/dL (10.7-15.3) L 05/14/20 05:28 Hct 30.4 % (32.4-45.2) L 05/14/20 05:28 MCV 71.7 fl (80-96) L 05/14/20 05:28 MCHC 30.8 g/dl (32.0-36.0) L 05/14/20 05:28 RDW 19.0 % (11.6-15.6) H 05/14/20 05:28 Plt Count 130 K/MM3 (134-434) L 05/14/20 05:28 INR 1.09 (0.83-1.09) 05/13/20 17:37 Sodium 140 mmol/L (136-145) 05/14/20 05:28 Potassium 3.8 mmol/L (3.5-5.1) 05/14/20 05:28 Chloride 106 mmol/L (98-107) 05/14/20 05:28 Carbon Dioxide 27 mmol/L (21-32) 05/14/20 05:28 Anion Gap 7 MMOL/L (8-16) L 05/14/20 05:28 BUN 11.1 mg/dL (7-18) 05/14/20 05:28 Creatinine 0.4 mg/dL (0.55-1.3) L 05/14/20 05:28 Random Glucose 88 mg/dL (74-106) 05/14/20 05:28 Calcium 8.3 mg/dL (8.5-10.1) L 05/14/20 05:28 Vascular study: no evidnece of DVT in RLE Foot xray: swelling to foot/ankle and evidence of medial ankle ulcer Microbiology 05/13/20 17:37 Ankle - Right Gram Stain - Final Problem List - Problems (1) Cellulitis Assessment/Plan: Iv abx as per ID Wound culture pending Elevate RLE at all times Continue diuretic to improve swelling Problems reviewed: Yes Code(s): L03.90 - CELLULITIS, UNSPECIFIED (2) Venous stasis ulcer Assessment/Plan: Local wound care with santyl, dressing and leg elevation. No evidence of need for surgical debridment Will continue to monitor for improvement in swelling/erythema and debridement of tissue with leslee D/w Dr. An Problems reviewed: Yes Code(s): I83.009 - VARICOSE VEINS OF UNSP LOWER EXTREMITY W ULCER OF UNSP SITE; L97.909 - NON-PRS CHRONIC ULC UNSP PRT OF UNSP LOW LEG W UNSP SEVERITY
[2020-05-14] MEDS ORDERED: DEXTROSE 5%-WATER - 50 ML IVPB ONE (15:59)
[2020-05-14] MEDS ORDERED: cefTRIAXone SODIUM 1 GM VIAL ONE (15:59)
[2020-05-14] MEDS: LACTOBACILLUS ACIDOPHILUS 1 TABLET PO SCH (16:20)
--- NOTE | 2020-05-14 17:57 | PN ---
Teaching Attending Note Name of Resident: Maryse Del Castillo ATTENDING PHYSICIAN STATEMENT I saw and evaluated the patient. I reviewed the resident's note and discussed the case with the resident. I agree with the resident's findings and plan as documented. SUBJECTIVE: pt seen and examined OBJECTIVE: Last Vital Signs Temp Pulse Resp BP Pulse Ox 98 F 98 H 18 147/90 99 05/14/20 13:30 05/14/20 13:30 05/14/20 13:30 05/14/20 13:30 05/14/20 13:30 GENERAL: Awake, alert, and fully oriented, in no acute distress. HEENT: AT/NC, EMOI LUNGS: Breath sounds equal, clear to auscultation bilaterally. No wheezes, and no crackles. No accessory muscle use. HEART: Regular rate and rhythm, normal S1 and S2 ABDOMEN: Soft, nontender, not distended MUSCULOSKELETAL: Normal range of motion at all joints. No bony deformities or tenderness. No CVA tenderness. LOWER EXTREMITIES: 2+ pulses, warm, well-perfused. Rt chip bin conveyor tender lower medial side, varicose veins Bilat., Rt warmth and edematous lower leg. 4 x 3cm superficial ulcer with pink and necrotic tissue NEUROLOGICAL: Cranial nerves II-XII intact. Normal speech. CBCD WBC 5.3 K/mm3 (4.0-10.0) 05/14/20 05:28 RBC 4.24 M/mm3 (3.60-5.2) 05/14/20 05:28 Hgb 9.4 GM/dL (10.7-15.3) L 05/14/20 05:28 Hct 30.4 % (32.4-45.2) L 05/14/20 05:28 MCV 71.7 fl (80-96) L 05/14/20 05:28 MCHC 30.8 g/dl (32.0-36.0) L 05/14/20 05:28 RDW 19.0 % (11.6-15.6) H 05/14/20 05:28 Plt Count 130 K/MM3 (134-434) L 05/14/20 05:28 MPV 9.7 fl (7.5-11.1) 05/14/20 05:28 CMP Sodium 140 mmol/L (136-145) 05/14/20 05:28 Potassium 3.8 mmol/L (3.5-5.1) 05/14/20 05:28 Chloride 106 mmol/L (98-107) 05/14/20 05:28 Carbon Dioxide 27 mmol/L (21-32) 05/14/20 05:28 Anion Gap 7 MMOL/L (8-16) L 05/14/20 05:28 BUN 11.1 mg/dL (7-18) 05/14/20 05:28 Creatinine 0.4 mg/dL (0.55-1.3) L 05/14/20 05:28 Calcium 8.3 mg/dL (8.5-10.1) L 05/14/20 05:28 Total Bilirubin 0.3 mg/dL (0.2-1) 05/13/20 17:37 AST 25 U/L (15-37) 05/13/20 17:37 ALT 18 U/L (13-61) 05/13/20 17:37 Alkaline Phosphatase 81 U/L (45-117) 05/13/20 17:37 Total Protein 6.5 g/dl (6.4-8.2) 05/13/20 17:37 Albumin 2.9 g/dl (3.4-5.0) L 05/13/20 17:37 Active Medications Acetaminophen (Tylenol -) 650 mg PO Q6H PRN PRN Reason: Fever Albuterol Sulfate (Ventolin Hfa Inhaler -) 2 puff IH Q4H PRN PRN Reason: SHORT OF BREATH/WHEEZING Collagenase (Santyl -) 1 applic TP DAILY CLARK; Protocol Enoxaparin Sodium (Lovenox -) 40 mg SQ DAILY CLARK Last Admin: 05/14/20 12:13 Dose: 40 mg Documented by: Hydrochlorothiazide (Hctz -) 25 mg PO DAILY CLARK Sodium Chloride (Normal Saline -) 1,000 mls @ 83 mls/hr IV ASDIR CLARK Last Admin: 05/14/20 14:18 Dose: 83 mls/hr Documented by: Clindamycin Phosphate (Cleocin 600 Mg Premix Ivpb -) 600 mg in 50 mls @ 100 mls/hr IVPB Q8H-IV CLARK; Protocol Ceftriaxone Sodium 1 gm/ (Dextrose) 50 mls @ 200 mls/hr IVPB DAILY CLARK; Protocol Lactobacillus Acidophilus (Bacid -) 1 tab PO DAILY CLARK Last Admin: 05/14/20 16:20 Dose: 1 tab Documented by: Lisinopril (Prinivil) 10 mg PO DAILY CLARK Oxycodone HCl (Roxicodone -) 5 mg PO Q6H PRN PRN Reason: PAIN LEVEL 6-10 Last Admin: 05/14/20 14:56 Dose: 5 mg Documented by: ASSESSMENT AND PLAN: Pt is a 54 yo F with PMHx of HTN, asthma, arthritis, resolve L ankle ulcer, and anemia presenting to the ED with worsening pain and fluid drainage from ulcer above R medial malleolus, treated with doxycycline outpatient, admitted for cellulitis + ulcer. #R medial maleolus infected ulcer + cellulitis 2/2 bilateral varicose veins leg elevation local wound care ABx per ID microcytic anemia HTN DVT prophylaxis
[2020-05-14] MEDS ORDERED: IRON SUCROSE INJECTION 200 MG in SODIUM CHLORIDE 90 ML IVPB ONE (17:58)
[2020-05-14] MEDS: CEFTRIAXONE 1 GM in DEXTROSE 5%-WATER - 50 ML IVPB SCH (18:41)
[2020-05-14] MEDS: ASCORBIC ACID 500 MG TABLET (FP) PO SCH (18:51)
[2020-05-14 20:14] VITALS: BMI 33.6
[2020-05-14 21:27] LABS: URINE APPEARANCE CLEAR; URINE BILIRUBIN NEGATIVE (NEGATIVE); URINE COLOR YELLOW; URINE GLUCOSE (UA) NEGATIVE (NEGATIVE); URINE KETONE NEGATIVE (NEGATIVE); URINE LEUK ESTERASE NEGATIVE (NEGATIVE); URINE NITRITE NEGATIVE (NEGATIVE); URINE PROTEIN NEGATIVE (NEGATIVE)
[2020-05-14] MEDS: CLINDAMYCIN 600MG PREMIX IVPB 600 MG/50 ML BAG IVPB SCH (21:39)
[2020-05-14] MEDS ORDERED: TRIMETHOBENZAMIDE HCL 300 MG CAPSULE PO ONE (22:41)
[2020-05-15] MEDS: SODIUM CHLORIDE 1,000 ML IV SCH ×2 (02:23→09:58)
[2020-05-15] MEDS: CLINDAMYCIN 600MG PREMIX IVPB 600 MG/50 ML BAG IVPB SCH ×2 (02:34→10:01)
[2020-05-15 09:23] LABS: CREATININE 0.4 mg/dL (0.55-1.3); POTASSIUM 3.9 mmol/L (3.5-5.1); TOT PROT 6.4 g/dl (6.4-8.2)
[2020-05-15 09:45] LABS: ALBUMIN 2.7 g/dl (3.4-5.0); BILIRUBIN,TOTAL 0.3 mg/dL (0.2-1); BLOOD UREA NITROGEN 8.5 mg/dL (7-18); CALCIUM 8.8 mg/dL (8.5-10.1); MAGNESIUM 2.1 mg/dL (1.8-2.4); PHOSPHOROUS 3.7 mg/dL (2.5-4.9)
[2020-05-15] MEDS ORDERED: DEXTROSE 5%-WATER - 50 ML IVPB ONE (09:56)
[2020-05-15] MEDS ORDERED: cefTRIAXone SODIUM 1 GM VIAL ONE (09:56)
[2020-05-15] MEDS: HYDROCHLOROTHIAZIDE 25 MG TABLET (FP) PO SCH (10:01)
[2020-05-15] MEDS: LISINOPRIL 10 MG TABLET (FP) PO SCH (10:02)
[2020-05-15] MEDS: ASCORBIC ACID 500 MG TABLET (FP) PO SCH (10:02)
[2020-05-15] MEDS: ZINC SULFATE 220 MG CAPSULE (FP) PO SCH (10:02)
[2020-05-15] MEDS: LACTOBACILLUS ACIDOPHILUS 1 TABLET PO SCH (10:03)
[2020-05-15] MEDS: ENOXAPARIN NA (PORCINE) 40 MG/0.4 ML DISP.SYRIN SQ SCH (10:09)
[2020-05-15] MEDS: CEFTRIAXONE 1 GM in DEXTROSE 5%-WATER - 50 ML IVPB SCH (11:28)
--- NOTE | 2020-05-15 12:25 | PN ---
Physical Exam: SUBJECTIVE: Patient seen and examined. Still pain over ulcer site. Denies fever, chills, n/v, diarrhea/constipation, CP, SOB. OBJECTIVE: Vital Signs Period Temp Pulse Resp BP Sys/Galindo Pulse Ox Last 24 Hr 97.6 F-98 F 76-99 16-18 117-147/64-91 98-100 GENERAL: Awake, alert, and fully oriented, in no acute distress. HEAD: Normal with no signs of trauma. EYES: Pupils equal, round and reactive to light, extraocular movements intact. No lid lag. EARS, NOSE, THROAT: Ears normal, nares patent, oropharynx clear without exudates. Moist mucous membranes. NECK: Normal range of motion, supple without lymphadenopathy, JVD, or masses. LUNGS: Breath sounds equal, clear to auscultation bilaterally. No wheezes, and no crackles. No accessory muscle use. HEART: Tachycardic. Regular rhythm, normal S1 and S2. Soft systolic murmur. ABDOMEN: Soft, nontender, not distended, normoactive bowel sounds, no guarding, no rebound, no masses. MUSCULOSKELETAL: Normal range of motion at all joints. No bony deformities or tenderness. UPPER EXTREMITIES: 2+ pulses, warm, well-perfused. No cyanosis. No clubbing. No peripheral edema. LOWER EXTREMITIES: 2+ pulses, warm, well-perfused. No calf tenderness. Non- pitting peripheral edema. Healed wound on top of foot, anterior ankle. Large ulcer above right medial malleolus with subcutaneous tissue showing and clear/brown fluid draining. Significant painful redness and swelling surrounding the ulcer. NEUROLOGICAL: Normal speech. Antalgic gait. Able to ambulate. Muscle strength +5/5 in upper and lower extremities bilaterally. PSYCHIATRIC: Cooperative. Good eye contact. Appropriate mood and affect. SKIN: Warm, dry, normal turgor, normal capillary refill. Laboratory Results - last 24 hr 05/13/20 05/14/20 05/15/20 21:50 17:50 07:54 ESR Sodium 140 Potassium 3.9 Chloride 106 Carbon Dioxide 27 Anion Gap 6 L BUN 8.5 Creatinine 0.4 L Est GFR (CKD-EPI)AfAm 138.79 Est GFR (CKD-EPI)NonAf 119.75 Random Glucose 85 Calcium 8.8 Phosphorus 3.7 Magnesium 2.1 Total Bilirubin 0.3 AST 37 ALT 29 Alkaline Phosphatase 110 C-Reactive Protein 0.5 H Total Protein 6.4 Albumin 2.7 L Urine Color Yellow Urine Appearance Clear Urine pH 7.0 Ur Specific [place] 1.007 L Urine Protein Negative Urine Glucose (UA) Negative Urine Ketones Negative Urine Blood Negative Urine Nitrite Negative Urine Bilirubin Negative Urine Urobilinogen 1.0 Ur Leukocyte Esterase Negative COVID-19 ([facility]VIN) Not detected 05/15/20 07:54 ESR 34 H Sodium Potassium Chloride Carbon Dioxide Anion Gap BUN Creatinine Est GFR (CKD-EPI)AfAm Est GFR (CKD-EPI)NonAf Random Glucose Calcium Phosphorus Magnesium Total Bilirubin AST ALT Alkaline Phosphatase C-Reactive Protein Total Protein Albumin Urine Color Urine Appearance Urine pH Ur Specific [place] Urine Protein Urine Glucose (UA) Urine Ketones Urine Blood Urine Nitrite Urine Bilirubin Urine Urobilinogen Ur Leukocyte Esterase COVID-19 ([facility]VIN) Active Medications Generic Name Dose Route Start Last Admin Trade Name Freq PRN Reason Stop Dose Admin Acetaminophen 650 mg 05/14/20 13:45 Tylenol - PO Q6H PRN Fever Albuterol Sulfate 2 puff 05/14/20 14:44 Ventolin Hfa Inhaler - IH Q4H PRN SHORT OF BREATH/WHEEZING Ascorbic Acid 500 mg 05/14/20 18:00 05/15/20 10:02 Vitamin C - PO 500 mg DAILY CLARK Administration Collagenase 1 applic 05/15/20 10:00 Santyl - TP DAILY CLARK Protocol Enoxaparin Sodium 40 mg 05/14/20 10:00 05/15/20 10:09 Lovenox - SQ 40 mg DAILY CLARK Administration Hydrochlorothiazide 25 mg 05/15/20 10:00 05/15/20 10:01 Hctz - PO 25 mg DAILY CLARK Administration Sodium Chloride 1,000 mls @ 83 mls/hr 05/14/20 01:30 05/15/20 09:58 Normal Saline - IV 83 mls/hr ASDIR CLARK Administration Clindamycin Phosphate 600 mg in 50 mls @ 100 mls/hr 05/14/20 18:00 05/15/20 10:01 Cleocin 600 Mg Premix Ivpb - IVPB 100 mls/hr Q8H-IV CLARK Administration Protocol Ceftriaxone Sodium 1 gm/ 50 mls @ 200 mls/hr 05/14/20 15:45 05/15/20 11:28 Dextrose IVPB 200 mls/hr DAILY CLARK Administration Protocol Lactobacillus Acidophilus 1 tab 05/14/20 15:45 05/15/20 10:03 Bacid - PO 1 tab DAILY CLARK Administration Lisinopril 10 mg 05/15/20 10:00 05/15/20 10:02 Prinivil PO 10 mg DAILY CLARK Administration Oxycodone HCl 5 mg 05/14/20 01:22 05/14/20 21:26 Roxicodone - PO 5 mg Q6H PRN Administration PAIN LEVEL 6-10 Zinc Sulfate 220 mg 05/15/20 10:00 05/15/20 10:02 Orazinc - PO 220 mg DAILY CLARK Administration ASSESSMENT/PLAN: Pt is a 54 yo F with PMHx of HTN, asthma, arthritis, resolve L ankle ulcer, and anemia presenting to the ED with worsening pain and fluid drainage from ulcer above R medial malleolus, treated with doxycycline outpatient, admitted for cellulitis + ulcer. #R medial maleolus venous stasis ulcer -Ceftriaxone and clindamycin per ID -consulted vascular and ID -encourage leg elevation #Hx of microcytic anemia -Rec'd IV venofer -H/H 9.4/30.4; continue to trend #Hx of HTN -Continue home Lisinopril and HCTZ FEN: Sodium controlled diet Monitor electrolytes NS @ 83cc/hr PPx: Lovenox SQ Dispo: Admit to med surg. On ceftriaxone + clinda. No surgical intervention. Visit type - Emergency Visit Emergency Visit: Yes ED Registration Date: 05/13/20 Care time: The patient presented to the Emergency Department on the above date and was hospitalized for further evaluation of their emergent condition. - New Patient This patient is new to me today: No - Critical Care Critical Care patient: No ATTENDING PHYSICIAN STATEMENT I saw and evaluated the patient. I reviewed the resident's note and discussed the case with the resident. I agree with the resident's findings and plan as documented. SUBJECTIVE: OBJECTIVE: ASSESSMENT AND PLAN:
[2020-05-15 13:02] LABS: BASO % 0.7 % (0-2.0); EOS % 3.1 % (0-4.5); HEMOGLOBIN 9.7 GM/dL (10.7-15.3); LYMPH % 32.6 % (8-40); MCH 22.3 pg (25.7-33.7); MCHC 31.5 g/dl (32.0-36.0); MEAN CELL VOLUME 70.9 fl (80-96); MEAN PLT VOLUME 10.4 fl (7.5-11.1); MONO % 13.8 % (3.8-10.2); NEUT % 49.8 % (42.8-82.8); PLATELET COUNT 142 K/MM3 (134-434); RBC 4.37 M/mm3 (3.60-5.2); RDW 19.2 % (11.6-15.6); WHITE BLOOD COUNT 5.4 K/mm3 (4.0-10.0)
--- NOTE | 2020-05-15 13:57 | PN ---
Progress Note (short form) - Note Progress Note: VASCULAR 54yo F h/o Rt ankle venous stasis ulcer and cellulitis. Pt states that the pain is improved from yesterday. Pt denies fever, chills, n/v. Last Vital Signs Temp Pulse Resp BP Pulse Ox 98 F 100 H 18 138/70 100 05/15/20 06:00 05/15/20 10:00 05/15/20 10:00 05/15/20 10:00 05/15/20 10:00 CBC, BMP 05/15/20 12:48 05/15/20 07:54 GENERAL: Awake, alert, and fully oriented, in no acute distress. LOWER EXTREMITIES: 2+DP pulses b/l, warm, well-perfused. LLE with palpable PT and scar over anterior ankle. RLE with swelling of foot and ankle with 4 x 3cm superficial ulcer with pink and necrotic tissue base. Surrounding erythema/circumfrential from ankle to mid calf. evidence of b/l chronic venous stasis. Problem List - Problems (1) Venous stasis ulcer Assessment/Plan: Cellulitis Plan -santyl and dry dressing to RLE wound -Continue antibiotics per ID/medical team -Elevate the lower extremity above the level of the heart at all times while at rest -Bilateral compression with jeancarlos wraps once cellulitis has receded (wrap from metacarpal heads to below knee) -Domeboro soaks QD (astringent for pruritus) -Apply Lac hydrin daily (for dry scaly skin) Code(s): I83.009 - VARICOSE VEINS OF UNSP LOWER EXTREMITY W ULCER OF UNSP SITE; L97.909 - NON-PRS CHRONIC ULC UNSP PRT OF UNSP LOW LEG W UNSP SEVERITY
[2020-05-15] MEDS: COLLAGENASE CLOSTRIDIUM HIST. 30 GRAMS TUBE TP SCH (14:36)
--- NOTE | 2020-05-15 14:37 | PN ---
Progress Note (short form) - Note Progress Note: continued pain and swellling of the area surrounding the ulcer Vital Signs Period Temp Pulse Resp BP Sys/Galindo Pulse Ox Last 24 Hr 97.6 F-98 F 89-100 18-18 117-140/64-90 98-100 cor-rrr lungs clear foot ulcer with drainage and surrounding erythema unchanged CBC, BMP 05/15/20 12:48 05/15/20 07:54 Microbiology 05/13/20 17:37 Ankle - Right Gram Stain - Final 05/13/20 17:37 Ankle - Right Wound Culture - Preliminary Presumptive Pseudomonas Spec. Non Lactose Fermenting Gnb Strep Agalactiae Group B Group D Strep Or Entero Coccus imp/reccd infected venous stasis ulcer with cellulitis and drainage switch to zosyn local care per surgery anemia Problem List - Problems (1) Cellulitis Code(s): L03.90 - CELLULITIS, UNSPECIFIED (2) Infected ulcer of skin Code(s): L98.499 - NON-PRESSURE CHRONIC ULCER OF SKIN OF SITES W UNSP SEVERITY; L08.9 - LOCAL INFECTION OF THE SKIN AND SUBCUTANEOUS TISSUE, UNSP (3) Venous stasis ulcer Code(s): I83.009 - VARICOSE VEINS OF UNSP LOWER EXTREMITY W ULCER OF UNSP SITE; L97.909 - NON-PRS CHRONIC ULC UNSP PRT OF UNSP LOW LEG W UNSP SEVERITY (4) Anemia Code(s): D64.9 - ANEMIA, UNSPECIFIED
[2020-05-15] MEDS ORDERED: PIPERACILLIN/TAZOBACTAM 4.5 GM VIAL IVPB ONE (17:11)
[2020-05-15] MEDS ORDERED: DEXTROSE 5%-WATER 100 ML IVPB ONE (17:11)
[2020-05-15] MEDS: PIPERACILLIN/TAZOB 4.5 GM 4.5 GM in DEXTROSE 5%-WATER 100 ML IVPB SCH ×2 (17:13→17:15)
--- NOTE | 2020-05-15 17:51 | PN ---
Teaching Attending Note Name of Resident: Maryse Del Castillo ATTENDING PHYSICIAN STATEMENT I saw and evaluated the patient. I reviewed the resident's note and discussed the case with the resident. I agree with the resident's findings and plan as documented. SUBJECTIVE: pt seen and examined OBJECTIVE: Last Vital Signs Temp Pulse Resp BP Pulse Ox 98.2 F 101 H 18 123/62 100 05/15/20 14:00 05/15/20 14:00 05/15/20 14:00 05/15/20 14:00 05/15/20 14:00 GENERAL: Awake, alert, and fully oriented, in no acute distress. HEENT: AT/NC, EMOI LUNGS: Breath sounds equal, clear to auscultation bilaterally. No wheezes, and no crackles. No accessory muscle use. HEART: Regular rate and rhythm, normal S1 and S2 ABDOMEN: Soft, nontender, not distended LOWER EXTREMITIES: 2+ pulses, warm, well-perfused. Rt combination machine tender lower medial side, varicose veins Bilat., Rt warmth and edematous lower leg. 4 x 3cm superficial ulcer with pink and necrotic tissue, swelling appear to be less compared to yesterday CBCD WBC 5.4 K/mm3 (4.0-10.0) 05/15/20 12:48 RBC 4.37 M/mm3 (3.60-5.2) 05/15/20 12:48 Hgb 9.7 GM/dL (10.7-15.3) L 05/15/20 12:48 Hct 31.0 % (32.4-45.2) L 05/15/20 12:48 MCV 70.9 fl (80-96) L 05/15/20 12:48 MCHC 31.5 g/dl (32.0-36.0) L 05/15/20 12:48 RDW 19.2 % (11.6-15.6) H 05/15/20 12:48 Plt Count 142 K/MM3 (134-434) 05/15/20 12:48 MPV 10.4 fl (7.5-11.1) 05/15/20 12:48 CMP Sodium 140 mmol/L (136-145) 05/15/20 07:54 Potassium 3.9 mmol/L (3.5-5.1) 05/15/20 07:54 Chloride 106 mmol/L (98-107) 05/15/20 07:54 Carbon Dioxide 27 mmol/L (21-32) 05/15/20 07:54 Anion Gap 6 MMOL/L (8-16) L 05/15/20 07:54 BUN 8.5 mg/dL (7-18) 05/15/20 07:54 Creatinine 0.4 mg/dL (0.55-1.3) L 05/15/20 07:54 Calcium 8.8 mg/dL (8.5-10.1) 05/15/20 07:54 Total Bilirubin 0.3 mg/dL (0.2-1) 05/15/20 07:54 AST 37 U/L (15-37) 05/15/20 07:54 ALT 29 U/L (13-61) 05/15/20 07:54 Alkaline Phosphatase 110 U/L (45-117) 05/15/20 07:54 Total Protein 6.4 g/dl (6.4-8.2) 05/15/20 07:54 Albumin 2.7 g/dl (3.4-5.0) L 05/15/20 07:54 Active Medications Acetaminophen (Tylenol -) 650 mg PO Q6H PRN PRN Reason: Fever Albuterol Sulfate (Ventolin Hfa Inhaler -) 2 puff IH Q4H PRN PRN Reason: SHORT OF BREATH/WHEEZING Ascorbic Acid (Vitamin C -) 500 mg PO DAILY [facility] Last Admin: 05/15/20 10:02 Dose: 500 mg Documented by: Collagenase (Santyl -) 1 applic TP DAILY [facility]; Protocol Last Admin: 05/15/20 14:36 Dose: 1 applic Documented by: Enoxaparin Sodium (Lovenox -) 40 mg SQ DAILY [facility] Last Admin: 05/15/20 10:09 Dose: 40 mg Documented by: Hydrochlorothiazide (Hctz -) 25 mg PO DAILY [facility] Last Admin: 05/15/20 10:01 Dose: 25 mg Documented by: Sodium Chloride (Normal Saline -) 1,000 mls @ 83 mls/hr IV ASDIR [facility] Last Admin: 05/15/20 09:58 Dose: 83 mls/hr Documented by: Piperacillin Sod/Tazobactam (Sod 4.5 gm/ Dextrose) 100 mls @ 200 mls/hr IVPB Q8H-IV [facility]; Protocol Last Admin: 05/15/20 17:15 Dose: Not Given Documented by: Lactobacillus Acidophilus (Bacid -) 1 tab PO DAILY [facility] Last Admin: 05/15/20 10:03 Dose: 1 tab Documented by: Lisinopril (Prinivil) 10 mg PO DAILY [facility] Last Admin: 05/15/20 10:02 Dose: 10 mg Documented by: Oxycodone HCl (Roxicodone -) 5 mg PO Q6H PRN PRN Reason: PAIN LEVEL 6-10 Last Admin: 05/14/20 21:26 Dose: 5 mg Documented by: Zinc Sulfate (Orazinc -) 220 mg PO DAILY [facility] Last Admin: 05/15/20 10:02 Dose: 220 mg Documented by: ASSESSMENT AND PLAN: Pt is a 54 yo F with PMHx of HTN, asthma, arthritis, resolve L ankle ulcer, and anemia presenting to the ED with worsening pain and fluid drainage from ulcer above R medial malleolus, treated with doxycycline outpatient, admitted for cellulitis + ulcer. #R medial maleolus infected ulcer + cellulitis 2/2 bilateral varicose veins leg elevation local wound care improved pain and swelling ABx per ID microcytic anemia HTN DVT prophylaxis
[2020-05-15] MEDS: oxyCODONE HCL 5 MG TABLET PO PRN (19:12)
[2020-05-16] MEDS ORDERED: DEXTROSE 5%-WATER 100 ML IVPB ONE ×3 (01:20→17:08)
[2020-05-16] MEDS ORDERED: PIPERACILLIN/TAZOBACTAM 4.5 GM VIAL IVPB ONE ×3 (01:20→17:08)
[2020-05-16] MEDS: PIPERACILLIN/TAZOB 4.5 GM 4.5 GM in DEXTROSE 5%-WATER 100 ML IVPB SCH ×3 (01:50→17:17)
[2020-05-16] MEDS: SODIUM CHLORIDE 1,000 ML IV SCH ×2 (03:05→20:49)
[2020-05-16] MEDS: oxyCODONE HCL 5 MG TABLET PO PRN ×2 (04:58→10:45)
[2020-05-16] MEDS ORDERED: DOCUSATE SODIUM 100 MG CAPSULE (FP) PO PRN (06:29)
[2020-05-16] MEDS: AMINO ACIDS/PROTEIN HYDROLYS 30 ML LIQUID.PKT PO SCH ×2 (08:36→17:17)
[2020-05-16 09:11] LABS: HEMOGLOBIN 9.4 GM/dL (10.7-15.3); MCH 22.3 pg (25.7-33.7); MCHC 31.2 g/dl (32.0-36.0); MEAN CELL VOLUME 71.3 fl (80-96); MEAN PLT VOLUME 10.1 fl (7.5-11.1); PLATELET COUNT 149 K/MM3 (134-434); RBC 4.21 M/mm3 (3.60-5.2); RDW 18.7 % (11.6-15.6); WHITE BLOOD COUNT 5.1 K/mm3 (4.0-10.0)
[2020-05-16 09:52] LABS: BLOOD UREA NITROGEN 10.3 mg/dL (7-18); CALCIUM 8.9 mg/dL (8.5-10.1); CREATININE 0.4 mg/dL (0.55-1.3); MAGNESIUM 1.6 mg/dL (1.8-2.4); PHOSPHOROUS 4.3 mg/dL (2.5-4.9); POTASSIUM 4.3 mmol/L (3.5-5.1)
[2020-05-16] MEDS: LACTOBACILLUS ACIDOPHILUS 1 TABLET PO SCH (10:41)
[2020-05-16] MEDS: FERROUS SO4 325 MG TABLET (FP) PO SCH ×2 (10:41→21:19)
[2020-05-16] MEDS: ENOXAPARIN NA (PORCINE) 40 MG/0.4 ML DISP.SYRIN SQ SCH (10:41)
[2020-05-16] MEDS: LISINOPRIL 10 MG TABLET (FP) PO SCH (10:41)
[2020-05-16] MEDS: HYDROCHLOROTHIAZIDE 25 MG TABLET (FP) PO SCH (10:41)
[2020-05-16] MEDS: ASCORBIC ACID 500 MG TABLET (FP) PO SCH (10:44)
[2020-05-16] MEDS: ZINC SULFATE 220 MG CAPSULE (FP) PO SCH (10:44)
[2020-05-16] MEDS ORDERED: MAGNESIUM 2GM/50ML STERILE WATER IVPB IVPB ONE (11:00)
[2020-05-16] MEDS ORDERED: ONDANSETRON 4 MG TABLET PO ONE (15:23)
--- NOTE | 2020-05-16 15:23 | PN ---
Physical Exam: SUBJECTIVE: Patient seen and examined. Improved swelling around ulcer site. Still complaining of pain, decreased. Denies f/c, CP, SOB OBJECTIVE: Vital Signs Period Temp Pulse Resp BP Sys/Galindo Pulse Ox Last 24 Hr 97.7 F-98.1 F 86-107 18-18 115-131/55-75 97-100 GENERAL: Awake, alert, and fully oriented, in no acute distress. HEAD: Normal with no signs of trauma. EYES: Pupils equal, round and reactive to light, extraocular movements intact. No lid lag. EARS, NOSE, THROAT: Ears normal, nares patent, oropharynx clear without exudates. Moist mucous membranes. NECK: Normal range of motion, supple without lymphadenopathy, JVD, or masses. LUNGS: Breath sounds equal, clear to auscultation bilaterally. No wheezes, and no crackles. No accessory muscle use. HEART: Tachycardic. Regular rhythm, normal S1 and S2. Soft systolic murmur. ABDOMEN: Soft, nontender, not distended, normoactive bowel sounds, no guarding, no rebound, no masses. MUSCULOSKELETAL: Normal range of motion at all joints. No bony deformities or tenderness. UPPER EXTREMITIES: 2+ pulses, warm, well-perfused. No cyanosis. No clubbing. No peripheral edema. LOWER EXTREMITIES: 2+ pulses, warm, well-perfused. No calf tenderness. Non- pitting peripheral edema. Healed wound on top of foot, anterior ankle. Large ulcer above right medial malleolus with subcutaneous tissue showing and clear/brown fluid draining. Significant painful redness and swelling surrounding the ulcer. NEUROLOGICAL: Normal speech. Antalgic gait. Able to ambulate. Muscle strength +5/5 in upper and lower extremities bilaterally. PSYCHIATRIC: Cooperative. Good eye contact. Appropriate mood and affect. SKIN: Warm, dry, normal turgor, normal capillary refill. Laboratory Results - last 24 hr 05/16/20 05/16/20 08:18 08:18 WBC 5.1 RBC 4.21 Hgb 9.4 L Hct 30.0 L MCV 71.3 L MCH 22.3 L MCHC 31.2 L RDW 18.7 H Plt Count 149 MPV 10.1 Sodium 142 Potassium 4.3 Chloride 108 H Carbon Dioxide 29 Anion Gap 5 L BUN 10.3 Creatinine 0.4 L Est GFR (CKD-EPI)AfAm 138.79 Est GFR (CKD-EPI)NonAf 119.75 Random Glucose 84 Calcium 8.9 Phosphorus 4.3 Magnesium 1.6 L Active Medications Generic Name Dose Route Start Last Admin Trade Name Freq PRN Reason Stop Dose Admin Acetaminophen 650 mg 05/14/20 13:45 Tylenol - PO Q6H PRN Fever Albuterol Sulfate 2 puff 05/14/20 14:44 Ventolin Hfa Inhaler - IH Q4H PRN SHORT OF BREATH/WHEEZING Amino Acids 30 ml 05/16/20 08:00 05/16/20 08:36 Prosource No Carb Liquid Pkt PO 30 ml BID@0800,1730 [facility] Administration Ascorbic Acid 500 mg 05/14/20 18:00 05/16/20 10:44 Vitamin C - PO 500 mg DAILY [facility] Administration Collagenase 1 applic 05/15/20 10:00 05/15/20 14:36 Santyl - TP 1 applic DAILY [facility] Administration Protocol Docusate Sodium 100 mg 05/16/20 06:29 Colace - PO BID PRN CONSTIPATION Enoxaparin Sodium 40 mg 05/14/20 10:00 05/16/20 10:41 Lovenox - SQ 40 mg DAILY [facility] Administration Ferrous Sulfate 325 mg 05/16/20 10:00 05/16/20 10:41 Feosol - PO 325 mg BID [facility] Administration Hydrochlorothiazide 25 mg 05/15/20 10:00 05/16/20 10:41 Hctz - PO 25 mg DAILY [facility] Administration Sodium Chloride 1,000 mls @ 83 mls/hr 05/14/20 01:30 05/16/20 03:05 Normal Saline - IV 83 mls/hr ASDIR [facility] Administration Piperacillin Sod/Tazobactam 100 mls @ 200 mls/hr 05/15/20 14:45 05/16/20 10:44 Sod 4.5 gm/ Dextrose IVPB 200 mls/hr Q8H-IV [facility] Administration Protocol Lactobacillus Acidophilus 1 tab 05/14/20 15:45 05/16/20 10:41 Bacid - PO Not Given DAILY [facility] Lisinopril 10 mg 05/15/20 10:00 05/16/20 10:41 Prinivil PO 10 mg DAILY [facility] Administration Oxycodone HCl 5 mg 05/14/20 01:22 05/16/20 10:45 Roxicodone - PO 5 mg Q6H PRN Administration PAIN LEVEL 6-10 Zinc Sulfate 220 mg 05/15/20 10:00 05/16/20 10:44 Orazinc - PO Not Given DAILY [facility] ASSESSMENT/PLAN: Pt is a 54 yo F with PMHx of HTN, asthma, arthritis, resolve L ankle ulcer, and anemia presenting to the ED with worsening pain and fluid drainage from ulcer above R medial malleolus, treated with doxycycline outpatient, admitted for cellulitis + ulcer. #R medial maleolus venous stasis ulcer -Switched to zosyn -consulted vascular; no surgical intervention -encourage leg elevation #Hx of microcytic anemia -Rec'd IV venofer -Hgb stable, continue to monitor #Hx of HTN -Continue home Lisinopril and HCTZ FEN: Sodium controlled diet Monitor electrolytes NS @ 83cc/hr PPx: Lovenox SQ Dispo: Admit to med surg. On zosyn. No surgical intervention. Visit type - Emergency Visit Emergency Visit: Yes ED Registration Date: 05/13/20 Care time: The patient presented to the Emergency Department on the above date and was hospitalized for further evaluation of their emergent condition. - New Patient This patient is new to me today: No - Critical Care Critical Care patient: No ATTENDING PHYSICIAN STATEMENT I saw and evaluated the patient. I reviewed the resident's note and discussed the case with the resident. I agree with the resident's findings and plan as documented. SUBJECTIVE: OBJECTIVE: ASSESSMENT AND PLAN:
[2020-05-16] MEDS ORDERED: METOCLOPRAMIDE HCL 10 MG TABLET (FP) PO ONE (15:24)
[2020-05-16] MEDS: COLLAGENASE CLOSTRIDIUM HIST. 30 GRAMS TUBE TP SCH (15:45)
--- NOTE | 2020-05-16 16:40 | PN ---
Progress Note (short form) - Note Progress Note: improved ulcer pain and swelling able to ambulate more comfortably Vital Signs Period Temp Pulse Resp BP Sys/Galindo Pulse Ox Last 24 Hr 97.7 F-98.1 F 86-107 18-18 115-130/55-65 97-100 cor-rrr lungs clear abd soft,nt ext ulcer is clean today, less erythema, still some ankle swelling CBC, BMP 05/16/20 08:18 05/16/20 08:18 Microbiology 05/13/20 17:37 Ankle - Right Gram Stain - Final 05/13/20 17:37 Ankle - Right Wound Culture - Final Presumptive Pseudomonas Spec. Non Lactose Fermenting Gnb Strep Agalactiae Group B Group D Strep Or Entero Coccus imp/reccd infected venous stasis ulcer with cellulitis and drainage continue zosyn, improving can switch to po levaquin 500 mg daily for 7 days in am (if no contra-indicat ions to quinolone use)as wound is poly microbial and includes both pseudomonas and strep-please call if quinolone use is not appropriate so we can discuss other treatment options should f/u at wound care center anemia Problem List - Problems (1) Cellulitis Code(s): L03.90 - CELLULITIS, UNSPECIFIED (2) Infected ulcer of skin Code(s): L98.499 - NON-PRESSURE CHRONIC ULCER OF SKIN OF SITES W UNSP SEVERITY; L08.9 - LOCAL INFECTION OF THE SKIN AND SUBCUTANEOUS TISSUE, UNSP (3) Venous stasis ulcer Code(s): I83.009 - VARICOSE VEINS OF UNSP LOWER EXTREMITY W ULCER OF UNSP SITE; L97.909 - NON-PRS CHRONIC ULC UNSP PRT OF UNSP LOW LEG W UNSP SEVERITY (4) Anemia Code(s): D64.9 - ANEMIA, UNSPECIFIED
[2020-05-17] MEDS ORDERED: PIPERACILLIN/TAZOBACTAM 4.5 GM VIAL IVPB ONE ×2 (00:58→09:20)
[2020-05-17] MEDS ORDERED: DEXTROSE 5%-WATER 100 ML IVPB ONE ×2 (00:58→09:20)
[2020-05-17] MEDS: PIPERACILLIN/TAZOB 4.5 GM 4.5 GM in DEXTROSE 5%-WATER 100 ML IVPB SCH ×3 (01:07→17:29)
[2020-05-17] MEDS: SODIUM CHLORIDE 1,000 ML IV SCH (03:15)
[2020-05-17 08:49] LABS: HEMATOCRIT 27.1 % (32.4-45.2); HEMOGLOBIN 8.8 GM/dL (10.7-15.3); MCH 23.2 pg (25.7-33.7); MCHC 32.4 g/dl (32.0-36.0); MEAN CELL VOLUME 71.5 fl (80-96); MEAN PLT VOLUME 10.3 fl (7.5-11.1); PLATELET COUNT 126 K/MM3 (134-434); RBC 3.79 M/mm3 (3.60-5.2); RDW 18.7 % (11.6-15.6); WHITE BLOOD COUNT 4.9 K/mm3 (4.0-10.0)
[2020-05-17 09:05] LABS: BLOOD UREA NITROGEN 9.1 mg/dL (7-18); CALCIUM 8.9 mg/dL (8.5-10.1); CREATININE 0.3 mg/dL (0.55-1.3); MAGNESIUM 1.7 mg/dL (1.8-2.4); PHOSPHOROUS 3.9 mg/dL (2.5-4.9); POTASSIUM 3.8 mmol/L (3.5-5.1)
[2020-05-17] MEDS ORDERED: MAGNESIUM SULF 50% (8.12 MEQ/2 ML-1 GM VIAL) IVPB ONE (09:09)
[2020-05-17] MEDS ORDERED: MAGNESIUM 1GM/D5W - 1 GM/100 ML IVPB IVPB ONE (09:15)
[2020-05-17] MEDS ORDERED: MAGNESIUM SULFATE IN WATER 2 GM/50 ML IVPB IVPB ONE (09:15)
[2020-05-17] MEDS: AMINO ACIDS/PROTEIN HYDROLYS 30 ML LIQUID.PKT PO SCH ×2 (09:36→17:28)
[2020-05-17] MEDS: FERROUS SO4 325 MG TABLET (FP) PO SCH (09:37)
[2020-05-17] MEDS: LACTOBACILLUS ACIDOPHILUS 1 TABLET PO SCH (09:37)
[2020-05-17] MEDS: LISINOPRIL 10 MG TABLET (FP) PO SCH (09:38)
[2020-05-17] MEDS: ZINC SULFATE 220 MG CAPSULE (FP) PO SCH (09:38)
[2020-05-17] MEDS: HYDROCHLOROTHIAZIDE 25 MG TABLET (FP) PO SCH (09:38)
[2020-05-17] MEDS: ENOXAPARIN NA (PORCINE) 40 MG/0.4 ML DISP.SYRIN SQ SCH (09:38)
[2020-05-17] MEDS: ASCORBIC ACID 500 MG TABLET (FP) PO SCH (09:40)
[2020-05-17] MEDS: COLLAGENASE CLOSTRIDIUM HIST. 30 GRAMS TUBE TP SCH (09:40)
--- NOTE | 2020-05-17 12:30 | EKG ---
Test Reason : Blood Pressure : / mmHG Vent. Rate : 098 BPM Atrial Rate : 098 BPM P-R Int : 196 ms QRS Dur : 096 ms QT Int : 368 ms P-R-T Axes : 066 028 066 degrees QTc Int : 469 ms NORMAL SINUS RHYTHM POSSIBLE LEFT ATRIAL ENLARGEMENT WHEN COMPARED WITH ECG OF 13-MAY-2020 21:55, NO SIGNIFICANT CHANGE WAS FOUND Confirmed by ASHLEY NAPOLES MD ([id number]) on 05/17/2020 12:30:24 PM Referred By: NORM ANDERSENSALT [facility] HOSPITALTimoteo Confirmed By:ASHLEY NAPOLES MD
--- NOTE | 2020-05-17 12:37 | PN ---
Teaching Attending Note Name of Resident: Maryse Del Castillo ATTENDING PHYSICIAN STATEMENT I saw and evaluated the patient. I reviewed the resident's note and discussed the case with the resident. I agree with the resident's findings and plan as documented. SUBJECTIVE: pt seen and examined OBJECTIVE: Last Vital Signs Temp Pulse Resp BP Pulse Ox 98.1 F 101 H 18 129/59 L 97 05/17/20 09:00 05/17/20 09:00 05/17/20 09:00 05/17/20 09:00 05/17/20 09:00 GENERAL: Awake, alert, and fully oriented, in no acute distress. HEENT: AT/NC, EMOI LUNGS: Breath sounds equal, clear to auscultation bilaterally. No wheezes, and no crackles. No accessory muscle use. HEART: Regular rate and rhythm, normal S1 and S2 ABDOMEN: Soft, nontender, not distended LOWER EXTREMITIES: 2+ pulses, warm, well-perfused. Rt back tender pulp drier lower medial side, varicose veins Bilat., Rt warmth and edematous lower leg. 4 x 3cm superficial ulcer with pink and necrotic tissue, swelling appear to be less compared to yesterday CBCD WBC 4.9 K/mm3 (4.0-10.0) 05/17/20 07:30 RBC 3.79 M/mm3 (3.60-5.2) 05/17/20 07:30 Hgb 8.8 GM/dL (10.7-15.3) L 05/17/20 07:30 Hct 27.1 % (32.4-45.2) L 05/17/20 07:30 MCV 71.5 fl (80-96) L 05/17/20 07:30 MCHC 32.4 g/dl (32.0-36.0) 05/17/20 07:30 RDW 18.7 % (11.6-15.6) H 05/17/20 07:30 Plt Count 126 K/MM3 (134-434) L 05/17/20 07:30 MPV 10.3 fl (7.5-11.1) 05/17/20 07:30 CMP Sodium 138 mmol/L (136-145) 05/17/20 07:30 Potassium 3.8 mmol/L (3.5-5.1) 05/17/20 07:30 Chloride 106 mmol/L (98-107) 05/17/20 07:30 Carbon Dioxide 28 mmol/L (21-32) 05/17/20 07:30 Anion Gap 4 MMOL/L (8-16) L 05/17/20 07:30 BUN 9.1 mg/dL (7-18) 05/17/20 07:30 Creatinine 0.3 mg/dL (0.55-1.3) L 05/17/20 07:30 Calcium 8.9 mg/dL (8.5-10.1) 05/17/20 07:30 Total Bilirubin 0.3 mg/dL (0.2-1) 05/15/20 07:54 AST 37 U/L (15-37) 05/15/20 07:54 ALT 29 U/L (13-61) 05/15/20 07:54 Alkaline Phosphatase 110 U/L (45-117) 05/15/20 07:54 Total Protein 6.4 g/dl (6.4-8.2) 05/15/20 07:54 Albumin 2.7 g/dl (3.4-5.0) L 05/15/20 07:54 Active Medications Acetaminophen (Tylenol -) 650 mg PO Q6H PRN PRN Reason: Fever Last Admin: 05/17/20 03:17 Dose: 650 mg Documented by: Albuterol Sulfate (Ventolin Hfa Inhaler -) 2 puff IH Q4H PRN PRN Reason: SHORT OF BREATH/WHEEZING Amino Acids (Prosource No Carb Liquid Pkt) 30 ml PO BID@0800,1730 [facility] Last Admin: 05/17/20 09:36 Dose: 30 ml Documented by: Ascorbic Acid (Vitamin C -) 500 mg PO DAILY [facility] Last Admin: 05/17/20 09:40 Dose: 500 mg Documented by: Collagenase (Santyl -) 1 applic TP DAILY [facility]; Protocol Last Admin: 05/17/20 09:40 Dose: 1 applic Documented by: Docusate Sodium (Colace -) 100 mg PO BID PRN PRN Reason: CONSTIPATION Enoxaparin Sodium (Lovenox -) 40 mg SQ DAILY [facility] Last Admin: 05/17/20 09:38 Dose: 40 mg Documented by: Ferrous Sulfate (Feosol -) 325 mg PO BID [facility] Last Admin: 05/17/20 09:37 Dose: 325 mg Documented by: Hydrochlorothiazide (Hctz -) 25 mg PO DAILY [facility] Last Admin: 05/17/20 09:38 Dose: 25 mg Documented by: Sodium Chloride (Normal Saline -) 1,000 mls @ 83 mls/hr IV [facility] Last Admin: 05/17/20 03:15 Dose: Not Given Documented by: Piperacillin Sod/Tazobactam (Sod 4.5 gm/ Dextrose) 100 mls @ 200 mls/hr IVPB Q8H-IV [facility]; Protocol Last Admin: 05/17/20 11:35 Dose: 200 mls/hr Documented by: Lactobacillus Acidophilus (Bacid -) 1 tab PO DAILY [facility] Last Admin: 05/17/20 09:37 Dose: 1 tab Documented by: Lisinopril (Prinivil) 10 mg PO DAILY [facility] Last Admin: 05/17/20 09:38 Dose: 10 mg Documented by: Oxycodone HCl (Roxicodone -) 5 mg PO Q6H PRN PRN Reason: PAIN LEVEL 6-10 Last Admin: 05/16/20 10:45 Dose: 5 mg Documented by: Zinc Sulfate (Orazinc -) 220 mg PO DAILY [facility] Last Admin: 05/17/20 09:38 Dose: 220 mg Documented by: ASSESSMENT AND PLAN: Pt is a 54 yo F with PMHx of HTN, asthma, arthritis, resolve L ankle ulcer, and anemia presenting to the ED with worsening pain and fluid drainage from ulcer above R medial malleolus, treated with doxycycline outpatient, admitted for cellulitis + ulcer. #R medial maleolus infected ulcer + cellulitis 2/2 bilateral varicose veins leg elevation local wound care improved pain and swelling ABx per ID microcytic anemia HTN DVT prophylaxis
--- NOTE | 2020-05-17 14:13 | DS ---
Physical Exam: SUBJECTIVE: Patient seen and examined OBJECTIVE: Vital Signs Period Temp Pulse Resp BP Sys/Galindo Pulse Ox Last 24 Hr 98.0 F-98.2 F 96-104 18-18 120-135/58-72 96-100 PHYSICAL EXAM GENERAL: The patient is awake, alert, and fully oriented, in no acute distress. HEAD: Normal with no signs of trauma. EYES: PERRL, extraocular movements intact, sclera anicteric, conjunctiva clear. ENT: Ears normal, nares patent, oropharynx clear without exudates, moist mucous membranes. NECK: Trachea midline, full range of motion, supple. LUNGS: Breath sounds equal, clear to auscultation bilaterally, no wheezes, no crackles, no accessory muscle use. HEART: Regular rate and rhythm, S1, S2 without murmur, rub or gallop. ABDOMEN: Soft, nontender, nondistended, normoactive bowel sounds, no guarding, no rebound, no hepatosplenomegaly, no masses. EXTREMITIES: 2+ pulses, warm, well-perfused, no edema. NEUROLOGICAL: Cranial nerves II through XII grossly intact. Normal speech, gait not observed. PSYCH: Normal mood, normal affect. SKIN: Warm, dry, normal turgor, no rashes or lesions noted. LABS Laboratory Results - last 24 hr 05/17/20 05/17/20 07:30 07:30 WBC 4.9 RBC 3.79 Hgb 8.8 L Hct 27.1 L MCV 71.5 L MCH 23.2 L MCHC 32.4 RDW 18.7 H Plt Count 126 L MPV 10.3 Sodium 138 Potassium 3.8 Chloride 106 Carbon Dioxide 28 Anion Gap 4 L BUN 9.1 Creatinine 0.3 L Est GFR (CKD-EPI)AfAm 152.57 Est GFR (CKD-EPI)NonAf 131.64 Random Glucose 88 Calcium 8.9 Phosphorus 3.9 Magnesium 1.7 L HOSPITAL COURSE: Date of Admission:05/13/20 Date of Discharge: 05/17/20 Minutes to complete discharge: 36 Discharge Summary Problems reviewed: Yes Reason For Visit: WOUND ON RIGHT ANKLE Current Active Problems Anemia (Acute) Cellulitis (Acute) Cellulitis and abscess of leg (Acute) Infected ulcer of skin (Acute) Venous stasis ulcer (Acute) Wound of right ankle (Acute) Condition: Improved - Instructions Diet, Activity, Other Instructions: You came to the hospital because the wound on your right ankle was worsening. You were found to have a venous stasis ulcer, which is when an ulceration forms due to decrease blood flow return from your foot. This led to an infection. You were treated with antibiotics to help control the infection. Please START and complete Augmentin 875mg twice a day for 7 days. Please START ferrous sulfate (iron supplements), 325mg twice a day. Please also take Miralax 17g as needed for constipation as this can occur with iron supplementation. Please resume all other home medications as prescribed. Please follow up with your primary care physician in 1 week for your overall health management. Please follow up with your vascular surgeon, Dr. An, within 1 week to evaluate your wound. Please follow up with your cashier checker, Dr. Langston, within 2 weeks to further evaluate your anemia. You are also due for your colonoscopy which you can book with the office. For your right ankle infection, please follow these directions to ensure proper healing, and no recurrence of the wound: -santyl and dry dressing to the right ankle wound -Elevate the legs above the level of the heart at all times while at rest -Bilateral compression with jeancarlos wraps once the swelling has resolved (wrap from the foot to below the knee) -Domeboro soaks daily (for pruritus) -Apply Lac hydrin daily (for dry scaly skin) If you have any new, worsening or changing symptoms or if your wound worsens or you develop fever/chills please return to the ED or call 911. Referrals: Jared Langston MD [Staff Physician] - ON STAFF,NOT [Primary Care Provider] - Von An DO [Staff Physician] - Disposition: HOME - Home Medications Comprehensive Discharge Medication List: Ambulatory Orders Hydrochlorothiazide [Hctz -] 25 mg PO DAILY 05/13/20 Lisinopril [Zestril] 10 mg PO DAILY 05/13/20 Albuterol Sulfate Inhaler - [Ventolin HFA Inhaler -] 2 puff IH Q4H PRN 05/14/20 Amoxicillin/Potassium Clav [Augmentin 875-125 Tablet] 1 each PO BID #14 tablet 05/17/20 Ferrous Sulfate [Feosol] 325 mg PO BID #60 ud 05/17/20 Polyethylene Glycol 3350 [Miralax (For Daily Use) -] 17 gm PO DAILY PRN #1 bottle 05/17/20 This patient is new to me today: No Emergency Visit: Yes ED Registration Date: 05/13/20 Care time: The patient presented to the Emergency Department on the above date and was hospitalized for further evaluation of their emergent condition. Critical Care patient: No - Discharge Referral Referred to [facility] No ATTENDING PHYSICIAN STATEMENT I saw and evaluated the patient. I reviewed the resident's note and discussed the case with the resident. I agree with the resident's findings and plan as documented. SUBJECTIVE: OBJECTIVE: ASSESSMENT AND PLAN:
[2020-05-17 15:40] VITALS: BP 134/50; PULSE 105; TEMP 97.9
== END 2020-05-17 17:50 | disposition home or self-care (01) | DRG 380 ==
LOC: JER 15:29 → JERBED 20:03 → J5S 05-14 13:39
PROVIDERS: ADMIT Internal Medicine; ATTEND Student in an Organized Health Care Education/Training Program
DX: L97.318 Non-pressure chronic ulcer of right ankle with other specified severity (principal); L03.115 Cellulitis of right lower limb; I10 Essential (primary) hypertension; E46 Unspecified protein-calorie malnutrition; Z68.33 Body mass index [BMI] 33.0-33.9, adult; E66.9 Obesity, unspecified; D64.9 Anemia, unspecified; L08.9 Local infection of the skin and subcutaneous tissue, unspecified; I83.213 Varicose veins of right lower extremity with both ulcer of ankle and inflammation; E88.09 Other disorders of plasma-protein metabolism, not elsewhere classified; J45.909 Unspecified asthma, uncomplicated; R00.0 Tachycardia, unspecified; I83.893 Varicose veins of bilateral lower extremities with other complications
CPT/HCPCS: 36415; 73610-TC-RT-FY; 73630-TC-RT-FY; 80048; 80053; 81003; 82607; 82746; 83036; 83540; 83550; 83735; 84100; 85025; 85027; 85045; 85610; 85651; 85730; 86140; 87070; 87076; 87077; 87205; 93005; 93010; 93306-TC; 93971-TC; 99285-25; J1756; U0003